=== PATIENT | female | born 1955 | race Two or more races ===

== ENCOUNTER 2022-03-23 11:22 | Emergency (ER) | payer MEDICAID ==
[~2022-03-23] VITALS: Ht 154.9 cm; Wt 68.5 kg
--- NOTE | 2022-03-23 11:40 | NUR ---
BIBA Family "Rectal Bleeding on/off x3mos. Bright Red blood w/stool Feel Weak". TO ER BED 4, HOOKED TO MONITOR, CHANGED TO HOSP GOWN, WARM BLANKET PROVIDED. PATIENT AAOX4. BREATHING EVEN AND UNLABORED. AWAITING MD MONTOYA
--- NOTE | 2022-03-23 11:43 | NUR ---
DR METZGER AT BEDSIDE
[2022-03-23] MEDS ORDERED: IV NS 0.9% 1,000 ML BAG IV ONE ×2 (12:00→12:30)
[2022-03-23 12:22] LABS: BASOPHILS % (AUTO) 0.4 % (0.0-2.0); EOSINOPHILS % (AUTO) 2.1 % (0.0-6.0); HEMATOCRIT 25 % (33-45); HEMOGLOBIN 7.4 g/dL (11.5-14.8); LYMPHOCYTES # (AUTO) 1.5 K/uL (0.8-4.8); LYMPHOCYTES % (AUTO) 18.4 % (20.0-44.0); MEAN CORPUSCULAR HGB CONC 30 g/dl (31.0-36.0); MEAN CORPUSCULAR VOLUME 62 fL (82-100); MONOCYTES # (AUTO) 0.8 K/uL (0.1-1.30); MONOCYTES % (AUTO) 9.7 % (2.0-12.0); NEUTROPHILS # (AUTO) 5.6 K/uL (1.8-8.9); NEUTROPHILS % (AUTO) 69.4 % (43.0-81.0); PLATELET COUNT (AUTO) 499 K/uL (150-450); RED BLOOD CELL COUNT(AUTO) 3.99 MIL/uL (4.0-5.2); WHITE BLOOD COUNT (AUTO) 8.1 K/uL (4.3-11.0)
[2022-03-23] MEDS ORDERED: HYDROCODONE/APAP 5/325MG TABLET PO ONE (12:30)
[2022-03-23] MEDS ORDERED: HYDROCODONE/APAP 5/325MG TABLET ONE ×2 (12:30→20:50)
[2022-03-23 12:39] LABS: CALCIUM, SERUM 9.2 mg/dL (8.5-10.1); CREATININE 0.9 mg/dL (0.6-1.3); POTASSIUM 3.5 mmol/L (3.5-5.1)
[2022-03-23] MEDS ORDERED: ACET1TAB91 PO (12:48)
[2022-03-23] MEDS ORDERED: TRAM50TA2 PO (12:48)
[2022-03-23] MEDS ORDERED: METO25TA4 PO (12:48)
[2022-03-23] MEDS ORDERED: AMLO-212 PO (12:48)
--- NOTE | 2022-03-23 12:49 | NUR ---
Bettie jasmine in [facility] - 03/23/22 at 1255 by MESERET CALLED [facility] FOR ADMISSION, AWAITING CALL BACK
[2022-03-23 13:20] LABS: BILIRUBIN,DIRECT 0.2 mg/dL (0.0-0.2); BILIRUBIN,TOTAL 0.4 mg/dL (0.2-1.0)
[2022-03-23 13:21] LABS: TOTAL PROTEIN, SERUM 7.8 g/dL (6.4-8.2)
--- NOTE | 2022-03-23 13:35 | NUR ---
SPOKE TO JAMES OF [facility]NAGEMENT, . WILL LOOK FOR BED AND WILL UPDATE US.
--- NOTE | 2022-03-23 13:45 | NUR ---
[employer] FAXED TO [phone]
--- NOTE | 2022-03-23 13:51 | NUR ---
COVID SWAB DONE AND SENT TO LAB
--- NOTE | 2022-03-23 13:52 | NUR ---
WHEELED OUT VIA [facility] FOR CT SCAN
--- NOTE | 2022-03-23 16:18 | NUR ---
ECCILE FROM ADMITTING IS CALLING [facility] [employer] [facility] TO FIND OUT IF THEY HAVE FOUND A BED
--- NOTE | 2022-03-23 16:19 | NUR ---
FAXED COVID RESULTS TO [facility]
--- NOTE | 2022-03-23 16:43 | NUR ---
PER ADMITTING PT ACCEPTED BY DR CHEATHAM AT [facility] AWAITING BED ASSIGNMENT AND TRANSFER INFO
--- NOTE | 2022-03-23 17:26 | NUR ---
PER SWING DRIVER JAMES, NO AVAILABLE BEDS AT THIS TIME. WILL PRESENT TO [facility].
--- NOTE | 2022-03-23 18:43 | NUR ---
DR [facility] GO[facility] TO [facility].
--- NOTE | 2022-03-23 19:30 | NUR ---
RECEIVED REPORT FROM JOSE F VALERO. PATIENT CAME WITH CC OF [facility]LEED. PATIENT FOR ADMISSION BUT WILL BE MOVED TO ANOTHER HOSPITAL DUE TO INSURANCE ISSUE. PATIENT IS AAOX4, BULGARIAN SPEAKING. WITH PERIPHERAL ACCESS ON LEFT AC G20. PATIENT IS ATTACHED TO MONITOR. VITALS CHECKED. PATIENT WILL BE CONTINUOUSLY MONITORED.
--- NOTE | 2022-03-23 19:30 | NUR ---
Note undone in EDM - 03/23/22 at 2044 by PADMA RECEIVED REPORT FROM JOSE F VALERO. PATIENT CAME WITH CC OF [facility]LE[facility]. PATIENT FOR ADMISSION BUT WILL BE MOVED TO ANOTHER HOSPITAL DUE TO INSURANCE ISSUE. PATIENT IS AAOX4, SYRIAC SPEAKING. WITH PERIPHERAL ACCESS ON LEFT AC G20. PATIENT IS ATTACHED TO MONITOR. VITALS CHECKED. PATIENT WILL BE CONTINUOUSLY MONITORED.
[2022-03-23 20:09] LABS: LYMPHOCYTES % (MANUAL) 24 % (16-48); MONOCYTES % (MANUAL) 7 % (0-11.0); NEUTROPHILS % (MANUAL) 69 (42-76)
[2022-03-23 20:20] VITALS: BP 145/76
--- NOTE | 2022-03-23 20:20 | NUR ---
Bettie jasmine in [facility] - 03/23/22 at 2044 by PADMA TRANSFERRED PATIENT TO ICU.
--- NOTE | 2022-03-23 20:53 | NUR ---
PATIENT COMPLAINING OF PELVIC PAIN SCALE OF 10/10. BP 156/101mmHg. ER MD ORDERED PAIN MEDS TO GIVE.
[2022-03-23] MEDS ORDERED: HYDROCODONE/APAP 5/325MG TABLET PO PRN (21:00)
--- NOTE | 2022-03-23 21:23 | NUR ---
FAMILY WANTS TO DO AMA. THEY WANT TO BRING THEIR FAMILY MEMBER TO [place] BY THEMSELVES. LUIS FERNANDO ANDREA MADE AWARE. DR HALL MADE AWARE.
--- NOTE | 2022-03-23 21:29 | NUR ---
DR HALL SPOKE TO PATIENT'S CHILDREN AND DISCUSSED THE PRO'S AND CON'S OF TRANSFER. STILL FAMILY IS PERSISTENT TO MOVE PATIENT OUT. PATIENT SIGNED WAIVER AMA.
--- NOTE | 2022-03-23 21:40 | NUR ---
ASSISTED PATIENT TO WHEELCHAIR. PATIENT DISCHARGE WITH VITALS STABLE. -CP, -SOB. IV CANNULA REMOVED
== END 2022-03-23 21:40 | disposition left against medical advice (07) ==
LOC: ER 11:34
DX: K62.5 Hemorrhage of anus and rectum (principal); D64.9 Anemia, unspecified; Z53.29 Procedure and treatment not carried out because of patient's decision for other reasons; I10 Essential (primary) hypertension; E78.5 Hyperlipidemia, unspecified; K64.9 Unspecified hemorrhoids; M25.559 Pain in unspecified hip
CPT/HCPCS: 99285; 74176; 96360; 71045; 87426; 93005; 85025; 80048; 83690; 80076; 36415; 85730; 87081; 85007; J7030 ×2; C9803